=== PATIENT | female | born 1995 | race Native Hawaiian/Other Pacific Islander ===

== ENCOUNTER 2017-09-03 17:56 | Emergency (ER) | payer OTHER ==
[2017-09-03 18:31] VITALS: BMI 29.0
[2017-09-03 18:33] VITALS: O2SAT 100
[2017-09-03] MEDS ORDERED: MethylPREDNISolone 40 mg Vial IVP STA (19:11)
[2017-09-03] MEDS ORDERED: Sodium Chloride 0.9% 1,000 ML IV ONE (19:11)
[2017-09-03] MEDS ORDERED: DiphenhydrAMINE 50 mg/ml Inj IVP STA (19:12)
--- NOTE | 2017-09-03 19:13 | C.PDOC ---
History Of Present Illness 22 yo female w/PMHx of contact dermatitis come in for evaluation of generalized pruritic rash gradually developed since yesterday evening. Mom denies previous hx of food allergy, denies recent illness. Otherwise, pt and mom denies fever, headache, dizziness, drooling, throat tightness or swelling dysphagia, dyspnea, cough, wheezing, abd. pain, N/V, Ambulate to ED for evaluation, not in any apparent distress. Time Seen by Provider: 09/03/17 18:58 Chief Complaint (Nursing): Allergic Reaction History Per: Patient, Family Onset/Duration Of Symptoms: Gradual Past Medical History Reviewed: Historical Data, Nursing Documentation, Vital Signs Vital Signs: Last Vital Signs Temp 98.7 F 09/03/17 20:28 Pulse 68 09/03/17 20:28 Resp 18 09/03/17 20:28 BP 114/70 09/03/17 20:28 Pulse Ox 100 09/03/17 20:28 - Medical History PMH: No Chronic Diseases Surgical History: No Surg Hx Family History: States: No Known Family Hx - Social History Hx Alcohol Use: No Hx Substance Use: No - Immunization History Hx Tetanus Toxoid Vaccination: Yes Hx Influenza Vaccination: Yes Hx Pneumococcal Vaccination: No Review Of Systems Except As Marked, All Systems Reviewed And Found Negative. Constitutional: Negative for: Fever, Chills Eyes: Negative for: Vision Change ENT: Negative for: Mouth Pain, Mouth Swelling, Throat Pain, Throat Swelling Cardiovascular: Negative for: Chest Pain Respiratory: Negative for: Cough, Shortness of Breath, Wheezing Gastrointestinal: Negative for: Nausea, Vomiting, Abdominal Pain Genitourinary: Negative for: Dysuria Skin: Positive for: Rash Neurological: Negative for: Altered Mental Status Physical Exam - Physical Exam Appears: Well, Non-toxic, No Acute Distress Skin: Normal Color, Warm, Dry, Rash (diffuse generalized body urticaria) Eye(s): bilateral: PERRL Nose: No Flaring, No Discharge Oral Mucosa: Moist, No Drooling Tongue: No Swelling Lips: No Swelling Throat: No Drooling, Other (Uvula midline, no edema.) Neck: Supple Cardiovascular: Rhythm Regular Respiratory: No Decreased Breath Sounds, No Accessory Muscle Use, No Stridor, No Wheezing Gastrointestinal/Abdominal: Soft, No Tenderness, No Distention, No Guarding Back: No CVA Tenderness Extremity: Normal ROM, No Deformity, No Swelling Neurological/Psych: Oriented x3, Normal Speech ED Course And Treatment O2 Sat by Pulse Oximetry: 100 Pulse Ox Interpretation: Normal Progress Note: On re-eval, pt is afebrile, hemodynamicaly stable. NOn-toxic. PulseOx 100% RA. ENT: no acute findings. Uvula midline, no edmea. Neck: SUpple , (-) meningeal sign. Lungs: CTA B/L, BS equal B/L. Abd: benign. Back: (-) CVA tenderness. Skin: mod imprpovement in generalized urticaria. Pt has clinical findings c/w urticaria likely allergic. Pt advised and ref. to F/U with PMD, ENT In 2-3 days for re-eval. return if any new changes. Disposition Counseled Patient/Family Regarding: Diagnosis, Need For Followup, Rx Given - Disposition Referrals: Norman Yuo MD [Staff Provider] - Disposition: HOME/ ROUTINE Disposition Time: 20:43 Condition: STABLE Additional Instructions: TAKE MEDICATION PRESCRIBED ENCOURAGE FLUIDS FOLLOW UP WITH PMD, FORENSIC PATHOLOGIST IN 2-3 DAYS FOR RE-EVALUATION. RETURN TO ED IF ANY WORSENING OR NEW CHANGES, Prescriptions: DiphenhydrAMINE [Benadryl] 25 mg PO BID #10 cap Famotidine [Pepcid] 20 mg PO BID #10 tab Prednisone [Deltasone] 60 mg PO DAILY #9 tablet Instructions: Urticaria (ED) Forms: [employer] ([place]), School Excuse - Clinical Impression Clinical Impression: Allergic urticaria
[2017-09-03] MEDS ORDERED: DiphenhydrAMINE 50 mg/ml Inj ONE (19:23)
[2017-09-03] MEDS ORDERED: Sodium Chloride 0.9% 1,000 ML ONE (19:24)
[2017-09-03 20:30] VITALS: BP 114/70; PULSE 68; RESP 18; TEMP 98.7
== END 2017-09-03 21:51 | disposition home or self-care (01) ==
LOC: C.ER 17:56
DX: L50.0 Allergic urticaria (principal)
CPT/HCPCS: 96361; 96374; 96375; 99284; J1200; J2920; J7040